=== PATIENT | male | born 1990 | race Caucasian/White ===

== ENCOUNTER 2016-09-04 23:27 | Emergency (ER) | payer OTHER ==
[~2016-09-04] VITALS: Ht 185.4 cm; Wt 92.3 kg
[~2016-09-04 23:27] MED LIST: ALEVE220 MG PO; OMNICEF300 MG PO
[2016-09-05] MEDS ORDERED: KEFLEX500 MG PO (00:51)
[2016-09-05] MEDS ORDERED: ULTRAM50 MG PO (00:51)
[2016-09-05 01:11] VITALS: BP 143/97
== END 2016-09-05 01:13 ==
LOC: EME 23:27
PROC: 08QNXZZ Repair Right Upper Eyelid, External Approach (ICD-10-PCS; principal; 2016-09-04)
PROC: 3E0234Z Introduction of Serum, Toxoid and Vaccine into Muscle, Percutaneous Approach (ICD-10-PCS; principal; 2016-09-04)
PROC: 0HQ1XZZ Repair Face Skin, External Approach (ICD-10-PCS; principal; 2016-09-04)
DX: S01.111A Laceration without foreign body of right eyelid and periocular area, initial encounter (principal); S01.411A Laceration without foreign body of right cheek and temporomandibular area, initial encounter; Y04.8XXA Assault by other bodily force, initial encounter; Y92.149 Unspecified place in prison as the place of occurrence of the external cause; Z91.018 Allergy to other foods; Z88.6 Allergy status to analgesic agent; F17.200 Nicotine dependence, unspecified, uncomplicated
CPT/HCPCS: 99281; 99285